=== PATIENT | male | born 2000 | race Caucasian/White ===

== ENCOUNTER 2024-10-27 18:12 | Emergency (ER) | payer BC, SELFPAY ==
[2024-10-27 18:15] VITALS: BP 149/89
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
[2024-10-27] MEDS: ATIVAN 2 MG IM (20:17)
[2024-10-27] MEDS: HALDOL 5 MG IM (20:17)
[2024-10-27 20:30] LABS: % Basophils 0.8 % (0-2); % Eosinophils 0.3 % (0-6); % Immature Granulocytes 0.3 % (0-0.5); % Lymphocytes 21.2 % (20.5-51.1); % Monocytes 8.8 % (1.7-9.3); % Neutrophils 68.6 % (42.2-75.2); Absolute Basophils 0.1 10^3/uL (0-0.2); Absolute Lymphocytes 2.5 10^3/uL (1.2-3.4); Hematocrit 46.5 % (39.0-52.0); Hemoglobin 16.6 g/dL (13.0-18.0); Mean Corp Hgb Conc. 35.7 g/dL (33.0-37.0); Mean Corpuscular Hgb 30.2 pg (27.0-31.0); Mean Corpuscular Volume 84.5 fL (80.0-94.0); Mean Platelet Volume 9.6 fL (7.4-10.4); Nucleated Red Blood Cells % 0 % (-); Platelet Count 310 10^3/uL (130-400); Red Cell Dist. Width 11.8 % (11.5-14.5); White Blood Cell Count 11.7 10^3/uL (4.8-10.8)
[2024-10-27 21:54] LABS: ALT (SGPT) 23 U/L (0-50); AST (SGOT) 35 U/L (17-59); Albumin 5.3 g/dl (3.5-5.0); Alkaline Phosphatase 84 U/L (38-126); Blood Urea Nitrogen 18 mg/dl (9-20); Calcium 9.7 mg/dl (8.4-10.2); Carbon Dioxide 21 mmol/L (22-30); Chloride 103 mmol/L (98-107); Glucose 110 mg/dl (70-99); Potassium 4.2 mmol/L (3.5-5.1); Sodium 140 mmol/L (135-145); Total Bilirubin 0.7 mg/dl (0.2-1.3); Total Protein 7.9 g/dl (6.3-8.2); eGFR > 60.00
[2024-10-27 21:59] LABS: Alcohol None Detected
[2024-10-28 13:14] VITALS: BP 150/89
--- NOTE | 2024-10-28 13:57 | CS.PSYCHR ---
Consult Summary - Psychiatry
-
Psychiatry consult. 24 yo male with history of cannabis use disorder presented voluntarily after acute intoxication with cannabis and psilocybin. Patient seen by telepsych yesterday who recommended monitoring to see if condition was substance
induced. At this time patient admits to using mushrooms and that it was an awful experience so he will never do it again. UDS pending.
Dad confirms history and states he is comfortable taking him home. He has already told patient's psychologist what happened and has scheduled an appointment with his for 10/30. We discussed possibility of substance induced condition vs an underlying
bipolar disorder and the importance of psychiatric evaluation after a period of clean time.
MSE- good eye contact. cooperative. logical and goal directed. denies SI/HI/AVH. some grandiose thinking noted. Fair insight. limited judgement. fully oriented
PMH- denies
Past psych- denies mental health diagnoses but states he's had periods of elevated mood with grandiose thinking as well as periods of depression. He denies past suicide attempts. He denies past psychiatric admissions. He has seen pyschologist
[facility] as an outpatient for several years since getting kicked out of for smoking marijuana.
D&A- extensive cannabis use history. has been to inpatient rehab for it before. did mushrooms very recently
Social- lives with parents. goes to [employer] as a [employer] science major
Family history- denies family mental health issues.
A/P- 24 yo male with severe cannabis use disorder as well as recent psilocybin intoxication, resolving. No indication for 302 commitment. Recommend outpatient D&A treatment as well as a psychiatric evaluation once he is clean. Has appointment with
psychologist on 10/30. Father will take him home today.
[2024-10-28 14:13] LABS: Amphetamines Negative (Negative); Barbiturates Negative (Negative); Benzodiazepines Positive (Negative); Buprenorphine Negative (Negative); Cocaine Negative (Negative); Marijuana Positive (Negative); Methadone Negative (Negative); Methamphetamines Negative (Negative); Opiates Negative (Negative); Phencyclidine Negative (Negative); Tricyclic Antidepressants Negative (Negative)
[2024-10-28 14:42] LABS: Fentanyl, Urine Negative (Negative)
== END 2024-10-28 15:05 | disposition home or self-care (01) ==
LOC: EMR 18:12
PROVIDERS: Physician Assistant Medical; CONSULT PHYSICIAN Psychiatry & Neurology Psychiatry; EMERGENCY PHYSICIAN Emergency Medicine
DX: F12.20 Cannabis dependence, uncomplicated (principal); R45.1 Restlessness and agitation; F19.90 Other psychoactive substance use, unspecified, uncomplicated
CPT/HCPCS: 96372; 99284; 80053; 80306; 80307; 82077; 85025

== ENCOUNTER 2024-12-04 18:20 | Emergency (ER) | payer BC, SELFPAY ==
[2024-12-04 18:22] VITALS: BP 147/108
--- NOTE | 2024-12-04 19:15 | ED.GENMED ---
History of Present Illness
General
Chief Complaint: Suicidal Ideation
Source: patient
Exam Limitations: none
Time Seen by Provider: 12/04/24 19:07
History of Present Illness
History of Present Illness:
See MDM
Past History
Past History
ED Past Medical History: None
ED Past Surgical History: Orthopedic
Social History
Tobacco: Non-smoker
Alcohol: None
Drug: None
Personal: Single
Living: with family
Phy Exam
Physical Exam
Physical Exam:
See MDM
Course
Orders/Labs/Results
Orders:
Orders
12/04/24 18:25
1:1 Observation - Suicide/ Violent Behavior As Directed
Crisis Consult Urgent
Reason for Consult: SI, tran
Vital Signs
Initial and Last Documented VS:
Initial Vital Signs
Pulse Resp BP Pulse Ox
118 20 147/108 98
12/04/24 18:22 12/04/24 18:22 12/04/24 18:22 12/04/24 18:22
Last Documented Vital Signs
Pulse Resp BP Pulse Ox
118 20 147/108 98
12/04/24 18:22 12/04/24 18:22 12/04/24 18:22 12/04/24 18:22
MDM/Problems Addressed
Differential Diagnosis Includes:
HPI and MDM Narrative:
24-year-old male presenting for evaluation of crisis consult. Patient is not 100% sure why he is here. He believes that his therapist talked to his mother to bring him in for evaluation. Patient states he has been struggling with his parents and
believe that they are controlling every aspect of his life. Patient is starting to get frustrated. He is concerned because they are picking the doctors that he goes to. Patient states he does have thoughts of hurting himself but is very adamant
that he would never act on it. He states these are chronic thoughts. He believes he has undiagnosed psychiatric disorder such as ADHD and states he wants to go home and continue his therapy sessions without the involvement of his parents.
On exam, patient is goal oriented. He is well-appearing and nontoxic. He does appear somewhat frustrated but is very compliant and calm with the current plan of crisis evaluation. He is not clinically intoxicated or under the influence. He is
not responding to internal stimuli. He states he wants to go outpatient and does not want to go inpatient.
During my evaluation, I do not see any indication to place on a 302
Physical exam
General: Well appearing and non-toxic. Sitting in bed comfortably
HEENT: protecting airway
Neck: appears supple
CV: No evidence of cyanosis
Resp: No accessory muscle use
Abd: Non-distended
Extremities: No deformities
Neuro: alert
Psych: Mildly agitated. Not responding to internal stimuli
Skin: Intact
Problems Addressed including Acute and Chronic Conditions affecting care:
1. Mental health evaluation
Acuity: acute
Prognosis: stable
Details: Will have crisis evaluate. There appears to be no current signs or symptoms to place on a 302
Updates
7:40 PM mother at bedside. I questioned why he was brought in today. She states the therapist thought he would benefit from evaluation emergency department and medication changes. I discussed with mother that the emergency department is not
necessarily the appropriate setting to change chronic medications. She does acknowledge that
7:55 PM Case rediscussed with crisis who discussed the case with mother. There appears to be no indication to 302 and he does not appear to be a harm to himself. Mother does agree and feels comfortable taking him home
Differential Diagnosis (but not limited to): Depression, tran, anxiety
Testing considered: Blood work and UDS
Drug therapy (if applicable): OTC meds, please see d/c instruction regarding Rx drugs
Amount and/or Complexity of Data Reviewed
Clinical info obtained from: Patient
External data reviewed: N/A
Labs I independently reviewed (but not limited to): N/A
Radiology: N/A
Pulse Ox: not hypoxic
EKG independently reviewed: N/A
Water/Wastewater Project Manager: N/A
Critical Care: N/A
Risk of Complication:
Social Determinants of health: Good social support
Discussed with other providers: Crisis
Escalation of Care includes Admit/Obs: After being observed in the Emergency Department, pt stable for discharge.
Occasional wrong word or 'sound a like' substitutions may have occurred due to the inherent limitations of voice recognition software. Read the chart carefully and recognize, using context, where substitutions have occurred.
*Critical Care Note
Total Time (30-74mins, 75-104mins- exclusive of procedures): Not Applicable
ED Attending Note
-
Portions of this chart may have been created with voice recognition software.� Occasional wrong word or��sound alike� substitutions may have occurred due to the inherent limitations of voice recognition software.
Discharge Plan
Departure
Patient Disposition: Home (Routine Discharge)
Date of Disposition: 12/04/24
Time of Disposition: 19:56
Patient with high blood pressure during this ER visit?: Yes
Discharge Problem:
Mental health problem
Instructions: Suicide Prevention, BLOOD PRESSURE
Referrals:
NONE,* [Family Provider] -
Activity Restrictions/Additional Instructions:
Please return for any worsening symptoms.
You may return at any time if you have further concerns.
Please follow up with your therapist at the first available appointment, preferably this week.
Thank you for choosing [facility].
Interventions
Interventions:
*Risk Screen - Suicide Last Done: 12/04/24 18:24
*General Assessment Last Done: 12/04/24 18:25
*Neglect/Abuse Screening Last Done: 12/04/24 19:50
ED- Fall Risk Assessment Last Done: 12/04/24 19:45
*ED COVID-19 Vaccine History Last Done: 12/04/24 19:50
ED-Psychological Assessment Last Done: 12/04/24 19:45
Discharge Date and Time
Print Language: CAPE VERDEAN
== END 2024-12-04 20:12 | disposition home or self-care (01) ==
LOC: EMR 18:20
PROVIDERS: EMERGENCY PHYSICIAN Student in an Organized Health Care Education/Training Program
DX: R45.851 Suicidal ideations (principal); R03.0 Elevated blood-pressure reading, without diagnosis of hypertension
CPT/HCPCS: 99283

== ENCOUNTER 2024-12-06 18:13 | Emergency (ER) | payer BC, SELFPAY ==
[2024-12-06 18:15] VITALS: BP 174/98
--- NOTE | 2024-12-06 19:40 | ED.GENMED ---
History of Present Illness
General
Chief Complaint: Psychiatric Problem
Source: patient, records and family
Exam Limitations: none
Time Seen by Provider: 12/06/24 19:04
Nursing documentation reviewed up to this point in time: agreed with
History of Present Illness
History of Present Illness:
24-year-old male with no reported medical history presents to the ER brought in by his father for behavioral issues and delusions. Patient was just seen in this emergency room 2 days ago for mental health evaluation and was recommended for
outpatient mental health treatment. According the patient today he had an appointment with his therapist and he went with his father. He says 'I was being honest with the therapist, but my dad and my therapist were not being honest with me.' He
is somewhat rambling during history but provides a variety of complaints including 'like my reading level is higher than anyone in the world, but I do not want to be a part of high society,' 'my dad has been convinced that I do not believe in
medicine, and my dad is a plant scientist,' 'my therapist is trying to convince me that I have Alzheimer's and I am only 24,' 'they are trying to convince me that I am lying by thinking but I know that thinking is freedom.' He apparently mentioned some
violent thoughts/homicidal ideations in triage�he denies this vehemently to me, he does admit that he has occasionally had thoughts of suicide but that he would never act on them. He does admit to marijuana use denies any drug use. Denies any
physical complaints. Apparently patient was seen at therapist today and referred to the ER for consideration for inpatient psychiatric treatment.
Past History
Past History
ED Past Medical History: None
ED Past Surgical History: Orthopedic
Social History
Tobacco: Non-smoker
Alcohol: None
Drug: None
Personal: Single
Living: with family
Review of Systems
Review of Systems
All Other Systems: ROS reviewed and negative except as documented in HPI and ROS
Respiratory: Denies trouble breathing
Cardiac: Denies chest pain
ABD/GI: Denies abdominal pain
: Denies flank pain
Musculoskeletal: Denies neck pain or back pain
Neurological: Denies dizzy or headache
Psychiatric: Reports suicidal (Occasional thoughts but no plan according the patient) and other (Delusions); Denies anxiety or hallucinations
Phy Exam
Physical Exam
Physical Exam:
General: Awake, alert, oriented x3 eating comfortably in the bed,; no acute distress
Head: Normocephalic, atraumatic
Eyes: Conjunctiva normal
Throat: Airway intact, handling secretions
Neck: Trachea midline, moving through comfortable range of motion
Lungs breathing comfortably no distress
Heart: Tachycardia
Neuro: No gross deficits
Skin: no rash
Extremities: Warm and well-perfused, atraumatic
Psych: Patient has poor insight, exhibiting clear delusions, no apparent hallucinations, not responding to internal stimuli; denies active suicidality or homicidal thoughts; rambling speech with flights of ideas
Scores
Heart Failure Risk
Heart Failure Risk Score: Not Applicable
Heart Score for Chest Pain Patients
STEMI patient?: Not applicable
Withdrawal Assessment of Alcohol
Withdrawal Assessment Completed?: Not applicable
Course
Orders/Labs/Results
Orders:
Orders
12/06/24 18:55
Crisis Consult Urgent
Reason for Consult: Homicidal
12/06/24 19:31
Consult Psychiatry [PSYCHIATRY CONSULT] Urgent
Consulting Provider: Jojo Rahman
Was physician already notified: Yes
Acetaminophen Urgent
Alcohol Urgent
Complete Blood Count/With Diff Urgent
Comprehensive Metabolic Panel Urgent
Salicylate Urgent
12/06/24 19:32
Drug Screen, Urine [Urine Drug Abuse Screen] Urgent
TSH Reflex To Free T4 Urgent
Vital Signs
Initial and Last Documented VS:
Initial Vital Signs
Temp Pulse Resp BP Pulse Ox
36.9 C 117 24 174/98 98
12/06/24 18:15 12/06/24 18:15 12/06/24 18:15 12/06/24 18:15 12/06/24 18:15
Last Documented Vital Signs
Temp Pulse Resp BP Pulse Ox
36.9 C 117 24 174/98 98
12/06/24 18:15 12/06/24 18:15 12/06/24 18:15 12/06/24 18:15 12/06/24 18:15
MDM/Problems Addressed
Differential Diagnosis Includes:
Coby, psychosis, drug/alcohol use/intoxication
MDM/Problems Addressed:
24-year-old male presents for psychiatric assessment�second visit in the past few days apparently referred by therapist today for consideration for inpatient treatment. Patient is clearly delusional, apparently made some vague violent threats in
triage but denies being homicidal or having violent thoughts to me. He reports occasional passive wish but denies any active plan or suicidal intent. He admits to marijuana use but denies other drug or alcohol use. He denies physical
complaints. He is currently agreeable to pursuing inpatient psychiatric treatment, crisis performed assessment recommended for inpatient treatment. Will send screening lab work and monitor pending placement.
*Pulse Oximetry
Patient hypoxic: no
*Critical Care Note
Total Time (30-74mins, 75-104mins- exclusive of procedures): Not Applicable
Data Reviewed
Review of Other/Old Records Reveals: Records
Source: patient
Patient Management
Discussion with other providers: Other (Discussed with crisis team)
Escalation/DeEscalation of care consider admission/obs:
Admission indicated�inpatient psych
ED Attending Note
-
Portions of this chart may have been created with voice recognition software.� Occasional wrong word or��sound alike� substitutions may have occurred due to the inherent limitations of voice recognition software.
Discharge Plan
Departure
Patient Disposition: Psych Facility
Date of Disposition: 12/06/24
Time of Disposition: 19:31
Discharge Problem:
Psychosis
Interventions
Interventions:
*Risk Screen - Suicide Last Done: 12/06/24 18:15
*General Assessment Last Done: 12/06/24 19:09
*Neglect/Abuse Screening Last Done: 12/06/24 18:15
ED-Psychological Assessment Last Done: 12/06/24 19:09
Discharge Date and Time
Print Language: [facility]
[2024-12-06 20:36] LABS: % Basophils 0.9 % (0-2); % Eosinophils 1.5 % (0-6); % Immature Granulocytes 0.4 % (0-0.5); % Lymphocytes 22.3 % (20.5-51.1); % Monocytes 9.8 % (1.7-9.3); % Neutrophils 65.1 % (42.2-75.2); Absolute Basophils 0.1 10^3/uL (0-0.2); Absolute Eosinophils 0.1 10^3/uL (0-0.7); Absolute Lymphocytes 1.7 10^3/uL (1.2-3.4); Absolute Monocytes 0.7 10^3/uL (0.1-0.6); Absolute Neutrophils 4.9 10^3/uL (1.4-6.5); Hematocrit 43.8 % (39.0-52.0); Hemoglobin 16.2 g/dL (13.0-18.0); Mean Corpuscular Volume 81.1 fL (80.0-94.0); Mean Platelet Volume 8.9 fL (7.4-10.4); Nucleated Red Blood Cells % 0 % (-); Platelet Count 302 10^3/uL (130-400); White Blood Cell Count 7.6 10^3/uL (4.8-10.8)
[2024-12-06 20:51] LABS: Chloride 102 mmol/L (98-107); Potassium 4.4 mmol/L (3.5-5.1); Sodium 137 mmol/L (135-145)
[2024-12-06 20:54] LABS: ALT (SGPT) 18 U/L (0-50); AST (SGOT) 24 U/L (17-59); Acetaminophen < 10 ug/ml (10-30); Albumin 4.8 g/dl (3.5-5.0); Alkaline Phosphatase 73 U/L (38-126); Blood Urea Nitrogen 18 mg/dl (9-20); Calcium 9.1 mg/dl (8.4-10.2); Carbon Dioxide 25 mmol/L (22-30); Glucose 108 mg/dl (70-99); Salicylate < 1.0 mg/dl (2.0-20.0); Total Bilirubin 0.6 mg/dl (0.2-1.3); Total Protein 7.4 g/dl (6.3-8.2); eGFR > 60.00
[2024-12-06 20:56] LABS: Alcohol None Detected
[2024-12-06 21:25] LABS: TSH Reflex To Free T4 0.62 uIU/ml (0.47-4.68)
== END 2024-12-06 23:14 ==
LOC: EMR 18:13
PROVIDERS: CONSULT PHYSICIAN Psychiatry & Neurology Psychiatry; EMERGENCY PHYSICIAN Emergency Medicine
DX: F29 Unspecified psychosis not due to a substance or known physiological condition (principal); F12.90 Cannabis use, unspecified, uncomplicated
CPT/HCPCS: 99285; 80053; 80143; 80179; 82077; 84443; 85025